=== PATIENT | male | born 1940 | race Caucasian/White ===

== ENCOUNTER 2017-04-09 14:30 | Outpatient (RCR) | payer OTHER | END 2017-04-25 | disposition home or self-care (01) | LOC: PTY 14:30 | DX: M48.06 Spinal stenosis, lumbar region (principal) | CPT/HCPCS: 97110; 97140; 97162; G0283 ==

== ENCOUNTER 2017-05-01 14:00 | Outpatient (RCR) | payer OTHER | END 2017-05-26 | disposition home or self-care (01) | LOC: PTY 14:00 | DX: M48.06 Spinal stenosis, lumbar region (principal) ==

== ENCOUNTER → 2017-06-26 | Outpatient (RCR) | payer OTHER | END | disposition home or self-care (01) | LOC: PTY 05-27 09:54 | DX: M48.06 Spinal stenosis, lumbar region (principal) ==

== ENCOUNTER 2017-07-22 09:15 | Outpatient (RCR) | payer OTHER | END 2017-07-26 | disposition home or self-care (01) | LOC: PTY 09:15 | DX: M48.06 Spinal stenosis, lumbar region (principal); M54.5 Low back pain ==

== ENCOUNTER 2017-08-14 15:45 | Outpatient (RCR) | payer OTHER | END 2017-08-26 | disposition home or self-care (01) | LOC: PTY 15:45 | DX: M48.061 Spinal stenosis, lumbar region without neurogenic claudication (principal) ==

== ENCOUNTER 2017-09-17 09:15 | Outpatient (RCR) | payer OTHER | END 2017-09-25 | disposition home or self-care (01) | LOC: PTY 09:15 | DX: M48.061 Spinal stenosis, lumbar region without neurogenic claudication (principal) | CPT/HCPCS: 97110; 97140; G0283 ==

== ENCOUNTER 2017-10-23 08:30 | Outpatient (RCR) | payer OTHER | END 2017-10-26 | disposition home or self-care (01) | LOC: PTY 08:30 | DX: M48.061 Spinal stenosis, lumbar region without neurogenic claudication (principal) | CPT/HCPCS: 97035; 97110; 97140; G0283 ==

== ENCOUNTER 2017-11-03 09:00 | Outpatient (RCR) | payer OTHER | END 2017-11-26 | disposition home or self-care (01) | LOC: PTY 09:00 | DX: M48.061 Spinal stenosis, lumbar region without neurogenic claudication (principal) | CPT/HCPCS: 97110; 97140; G0283 ==